=== PATIENT | female | born 1960 | race Caucasian/White ===

== ENCOUNTER 2016-04-15 21:38 | Inpatient (IN) | payer OTHER ==
--- NOTE | ~2016-04-15 | HP ---
Unit #: [id number] #: [id number] Patient: GUY ARAIZA [id number] [address] [place], [place] [address] [id number] MR#: [id number] NAME: GUY ARAIZA. ROOM: 215 Age: 55 Sex: F Admission Date: 04/16/2016 : 1960 Attending Physician: Jazz Thomson M.D. Primary Care Physician: Alondra Smith M.D. HISTORY AND PHYSICAL CHIEF COMPLAINT Community-acquired pneumonia with acute hypoxic respiratory failure and asthma exacerbation. HISTORY This pleasant 55-year-old female with asthma, hypertension, ulcerative colitis, is admitted for pneumonia. The patient states that she was well until two days ago when she developed fevers, chills, increasing shortness of breath with a deep cough productive of yellow sputum and mild wheezing. She was seen at an [facility] earlier today and was given some steroids, sent to this facility. In our ER, chest x-ray shows new diffuse bilateral interstitial infiltrates consistent with pneumonia. She was treated with Tylenol for a fever, given 2 g of Rocephin, 500 mg of Zithromax and a liter of saline. Denies antibiotics or hospitalizations over the past three months. PAST MEDICAL HISTORY 1. Asthma, status post bronchial thermoplasty, on chronic low dose steroids. 2. Ulcerative colitis. 3. Hypertension. 4. Hypothyroidism. 5. GERD. 6. DJD. 7. Allergic rhinitis. 8. Cholecystectomy. 9. BTL. 10. Left total hip replacement. 11. Right total knee replacement. ALLERGIES Sulfa, penicillin, Cipro, cyclosporin, possibly Biaxin. The patient is not allergic to cephalosporins. HOME MEDICATIONS 1. Astelin nasal spray. 2. Calcium plus D b.i.d. 3. Mucous Relief four tablets daily as needed. 4. Vitamin B12, 1000 mcg daily. 5. Procardia XL 30 mg daily. 6. Iron 65 mg daily. 7. Aspirin 81 mg daily. Unit #: [id number] #: [id number] Patient: GUY ARAIZA 8. Synthroid 150 mcg daily. 9. Omeprazole 40 mg daily. 10. Methylprednisolone 2 mg every other day. 11. Flonase nasal spray. 12. Advair b.i.d. 13. QVAR b.i.d. 14. Spiriva one puff daily. 15. Some sort of shot every three months. 16. Mesalamine 1.2 g b.i.d. 17. Paxil 10 mg daily. FAMILY HISTORY Asthma. SOCIAL HISTORY The patient lives with her boyfriend. She is a lifelong nonsmoker, seldom drinks alcohol. REVIEW OF SYSTEMS Notable for productive cough, shortness of breath, fevers, chills, asthma, hypertension, hypothyroidism, ulcerative colitis, GERD, DJD, allergic rhinitis, psoriasis, above mentioned surgeries. All other systems were reviewed and are negative. PHYSICAL EXAMINATION GENERAL APPEARANCE: Pleasant, obese, 55-year-old female who looks younger than stated age. VITAL SIGNS: Temperature 100.8, pulse 116, respirations 22, blood pressure 115/78. O2 saturation was 86% on room air. HEENT: Eyes PERRLA. Extraocular muscles are intact. Pharynx is benign. NECK: Supple without adenopathy or thyromegaly. CHEST: Some rhonchi and some crackles bilaterally anteriorly. Rhonchi posteriorly with mild expiratory wheeze bilaterally. CARDIAC: Normal S1 and S2 without murmur. ABDOMEN: Bowel sounds are present. No hepatosplenomegaly, tenderness or masses. EXTREMITIES: Without clubbing, cyanosis or edema. Pedal pulses are present. NEUROLOGIC EXAM: The patient is awake, alert, oriented. Cranial nerves are intact. Equal strength throughout. DIAGNOSTIC STUDIES LABORATORY: Admission labs - hematocrit is 41.8, white blood count is 10.1, normal platelet count. SMA-12 - glucose 132, sodium 134, lactic acid is normal. Cardiac markers are negative. Flu serology negative. IMAGING: Chest x-ray - new, diffuse, bilateral interstitial infiltrates consistent with pneumonia. ASSESSMENT 1. Community-acquired pneumonia with acute hypoxic respiratory failure and asthma exacerbation. 2. Hypertension. Unit #: [id number] #: [id number] Patient: GUY ARAIZA 3. Hypothyroidism. 4. Gastroesophageal reflux disease. 5. Ulcerative colitis. 6. Psoriasis. 7. Degenerative joint disease. PLANS 1. Zithromax and Rocephin will be continued pending cultures. 2. Steroids, mucolytics, bronchodilators. 3. DVT prophylaxis. 4. Florastor. 5. IV fluids and supportive treatment. 6. If not improving, will ask pulmonary to see. Patient requests Dr. Zeke Ordoñez to see if a certified professional coder is necessary. Dictated by Jazz Thomson M.D. TALA/lacey TD: 04/16/2016 06:20 JOB #: [id number] HISTORY AND PHYSICAL X Jazz Thomson MD X HISTORY AND PHYSICAL
--- NOTE | ~2016-04-15 | CR72 ---
[facility] A Service of [facility] RADIOLOGY TEXT RESULTS PATIENT: GUY ARAIZA LOCATION: [facility] : [birth year] UNIT #: [id number] AGE: [address]: Krish Macias MD SEX: F ORDER DR: [id number] [facility] [address] [facility]. [place], [place] [address] [id number] MR#: [id number] Acc #: [id number] NAME: GUY ARAIZA : 1960 SEX: F STUDY DATE/TIME: 04/15/2016 19:45 UNIT: [facility] ROOM: [facility] STUDY DESCRIPTION: CR Chest Single View Portable Attending Physician: Krish Macias M.D. Ordering Physician: Eros Pascal D.O. Primary Care Physician: Alondra Smith M.D. MEDICAL IMAGING REPORT This report is preliminary unless electronic signature is present EXAM AP portable chest. DATE 04/15/2016 HISTORY Shortness of breath for 3 days. Cough and congestion and fever. COMPARISON PA and lateral chest 03/23/2013. FINDINGS New diffuse interstitial changes are seen within both lungs thought to represent change of bilateral interstitial pneumonia. Heart size is normal. No pleural effusion or pneumothorax. Radiographic followup to resolution is recommended. Dictated by... Leeanne Sapp M.D. THIS IS AN ELECTRONICALLY VERIFIED REPORT Leeanne Sapp M.D. at 04/16/2016 2:09 PM [facility]/anirudh TD: 04/16/2016 09:14 JOB #: [id number] MEDICAL IMAGING REPORT COPY
--- NOTE | ~2016-04-15 | DS ---
Unit #: [id number] #: [id number] Patient: GUY ARAIZA [id number] [address] [address] [id number] I MR#: [id number] NAME: GUY ARAIZA. ROOM: 215 Age: 55 Sex: F Admission Date: 04/15/2016 : 1960 Discharge Date: 04/18/2016 Attending Physician: Krish Macias M.D. Primary Care Physician: Alondra Smith M.D. DISCHARGE SUMMARY DISCHARGE DIAGNOSES 1. Community acquired pneumonia. Presented to be gram negative rods. 2. Sepsis present on admission due to pneumonia. 3. Acute asthma exacerbation. 4. Essential hypertension. 5. Ulcerative colitis. Chronically on methylprednisolone. 6. Hypothyroidism. 7. History of gastroesophageal reflux disease. PROCEDURES PERFORMED None. CONSULTANTS None. DIAGNOSTIC DATA IMAGING: Chest x-ray on 04/15/2016, findings new diffuse interstitial changes seen within both lungs, thought to represent change of bilateral interstitial pneumonia. Heart size is normal. No pleural effusion or pneumothorax. Radiographic followup to resolution is recommended. LABORATORY: On the day of discharge the patient's lab include glucose 153, BUN 19, creatinine 1.0, sodium 135, potassium 4.4, chloride 102, CO2 27, calcium 9.0, total protein 7.6, albumin 3.6, total bilirubin 0.7. A1c was 5.6. TSH was 0.66. CBC with white blood cell count 5.7, RBC 4.5, hemoglobin 13.3, hematocrit 39.5, MCV 87.8, MCH 29.5, MCHC 33.6, RDW 14.4, platelets 227, MCV 7.7. HOSPITAL COURSE The patient is a pleasant 55-year-old female with a past medical history of asthma, essential hypertension, ulcerative colitis. She presented to the emergency department with two days of symptoms of fever, chills, increasing shortness of breath with a deep cough productive of yellow sputum and mild wheezing. She was seen by [facility] earlier on the day of admission and was given some steroids and sent to [facility] emergency department. In the emergency department chest x-ray had shown new diffuse bilateral interstitial infiltrates consistent with pneumonia. She was treated with Tylenol for fever, given 2 g of Rocephin, 500 mg Zithromax and a liter of saline. She had denied antibiotics or hospitalization over the past three months. She was treated for her asthma exacerbation with high-dose Solu-Medrol. The following day she felt that she had much improvement in her symptoms and she had desaturated with ambulation. Therefore, we continued her course of treatment. Today she again still feels pretty well, but is able to Unit #: [id number] #: [id number] Patient: GUY ARAIZA keep her oxygen saturation at about 92% on room air. With ambulating in the hallway she will desaturate to the 80s. She tells me that she has chronic dyspnea on exertion. I truly believe that she has chronic hypoxic respiratory failure and is hypoxic on exertion. I have spoken to her at length about how at less than 88% the body is starving for oxygen and that this would put a great strain on her heart. I did tell her that I am hopeful that maybe after an acute asthma exacerbation she could be reassessed by either her family doctor or her timekeeping supervisor to see if she needs continued oxygen. There is a stigma that she has with oxygen usage and she is hopeful that she will not need oxygen. Again I have stressed to her the importance of oxygen usage if needed and that it strains the heart to be in hypoxic state. She voiced understanding. At this time she is stable and is discharged in stable condition, to set up home oxygen usage. DISCHARGE CONDITION Stable. FOLLOWUP 1. Arranging for home oxygen usage. 2. Follow up with primary care physician within one to two weeks with follow-up chest x-ray. 3. Follow up with her timekeeping supervisor or her thread puller in about three to four weeks. DISCHARGE MEDICATIONS 1. Albuterol nebulizer daily. 2. Advair 230 with 21 mcg inhaled 2 puffs b.i.d. 3. Methylprednisolone 2 mg p.o. every other day. 4. Fluticasone nasal spray 2 sprays each nares daily. 5. Q-Lauren 2 puffs inhaled b.i.d. 6. Spiriva inhaled 1 capsule daily. 7. Procardia XL 30 mg p.o. daily. 8. Guaifenesin 400 mg p.o. q.i.d. p.r.n. coughing. 9. Astelin 2 sprays each nares daily. 10. Diovan 160 mg p.o. daily. 11. Iron supplement, iron sulfate, 325 mg p.o. daily. 12. Will give her one more dose of azithromycin 250 mg p.o. daily to complete a 5-day course. 13. Mesalamine 1.2 g p.o. b.i.d. 14. Aspirin 81 mg p.o. daily. 15. Prilosec 40 mg p.o. daily. 16. Calcium plus D 600 mg p.o. daily. 17. Albuterol nebulized t.i.d. 18. Synthroid 150 mcg p.o. daily. 19. Vitamin B12 1000 mg p.o. daily. 20. I will be prescribing prednisone for 40 mg p.o. for 3 days, 30 mg p.o. for 3 days, 20 mg p.o. for 3 days, 10 mg p.o. for 3 days, then stop. Dictated by... Jim Mcnair PA-C for Akila Eaton TD: 04/18/2016 09:10 Unit #: [id number] #: [id number] Patient: GUY ARAIZA JOB #: [id number] DISCHARGE SUMMARY X X DISCHARGE SUMMARY
--- NOTE | ~2016-04-15 | EKG ---
PATIENT: GUY ARAIZA UNIT #: [id number] Ventricular Rate: 113 BPM Atrial Rate: 113 BPM P-R Interval: 152 ms QRS Duration: 92 ms Q-T Interval: 320 ms QTC Calculation(Bezet): 438 ms P [place]: 71 degrees Calculated R [place]: 100 degrees Calculated T [place]: 51 degrees Diagnosis Line: Sinus tachycardia Diagnosis Line: Rightward axis Diagnosis Line: Incomplete right bundle branch block Diagnosis Line: Septal infarct (cited on or before 23-MAR-2013) Diagnosis Line: Abnormal ECG Diagnosis Line: When compared with ECG of 23-MAR-2013 06:41, Diagnosis Line: (unconfirmed) Diagnosis Line: Vent. rate has increased BY 39 BPM Diagnosis Line: Incomplete right bundle branch block is now Diagnosis Line: Present Diagnosis Line: Confirmed by BAILEY MALDONADO MD[facility] ([id number]) on Diagnosis Line: 04/16/2016 4:12:56 PM INTERPRETING MD: ERICA ASHFORD
[2016-04-15 20:19] LABS: BASOPHIL# 0.1 X10e3 (0-0.3); BASOPHIL% 0.5 % (0-2.5); DIFF IND NO; EOSINOPHIL# 0.2 X10e3 (0-0.7); EOSINOPHIL% 2.3 % (0.0-7.0); HEMATOCRIT 41.8 % (35.0-45.0); HEMOGLOBIN 14.2 gm/dL (12.0-16.0); LYMPHOCYTE# 0.6 X10e3 (1.0-3.5); LYMPHOCYTE% 6.1 % (17.0-45.0); MEAN CELL VOLUME 86.7 FL (83-96); MEAN CORPUSCULAR HEMOGLOBIN 29.4 PG (28-34); MEAN CORPUSCULAR HGB CONC 33.9 g/dL (30-36); MEAN PLATELET VOLUME 7.5 FL (6.5-11.5); MONOCYTE# 0.7 X10e3 (0-1.0); MONOCYTE% 6.8 % (3.0-12.0); NEUTROPHIL# 8.5 X10e3 (1.5-7.1); NEUTROPHIL% 84.3 % (40-75); PLATELET COUNT 215 X10e3 (140-420); RED BLOOD COUNT 4.82 X10e (3.90-5.30); RED CELL DISTRIBUTION WIDTH 14.2 % (11.0-15.5); WHITE BLOOD COUNT 10.1 X10e3 (4.0-10.5)
[2016-04-15 20:24] LABS: POC - CKMB 3.2 ng/mL (0.0-7.9); POC - TROPONIN <0.05 ng/mL (<=0.05)
[2016-04-15 20:50] LABS: ALBUMIN SERUM 3.6 g/dL (3.5-5.0); BILIRUBIN, DIRECT 0.2 mg/dL (0.0-0.2); BILIRUBIN,INDIRECT 0.5 mg/dL (0.0-0.9); BILIRUBIN,TOTAL 0.7 mg/dL (0.2-2.0); BUN/CREATININE RATIO 6.66; CALCIUM SERUM 8.8 mg/dL (8.4-10.2); CREATININE SERUM 1.2 mg/dL (0.6-1.4); GLOM FILT RATE Estimated 49.9 mL/min (>60); POTASSIUM 3.9 mmol/L (3.5-5.1); PROTEIN TOTAL SERUM 7.6 g/dL (6.0-8.3)
[~2016-04-15 21:38] MED LIST: ADVAIR 5001 DISK W/D; ALBUTEROL17 GM; CALCIUM 600 +1 EA10 PO; DIOVAN160 MG PO; DULERA 200 MCG/13 GM IH; FLONASE 0.05% N16 GM; IRON325 ( 651 PO; LOW DOSE ASPIRI81 M1 PO; MEDROL2 MG PO; MUCOSA400 MG PO; PERCOCET 7.5/321 TAB PO; PRILOSEC40 MG PO; PROCARDIA XL PO; QVAR7.3 G1 IH; SYNTHROID; SYNTHROID0.15 MG PO; TRAMADOL HCL50 M1 PO; VITAMIN B-121000 MCG PO; XOPENEX1.25 MG/3 IH; ZEGERID40 MG/PKT; ZESTORETIC 20/11 TAB
[2016-04-15] MEDS ORDERED: AZELASTINE137 MCG/01 (22:05)
[2016-04-15] MEDS ORDERED: SPIRIVA18 MCG INH (22:06)
[2016-04-15] MEDS ORDERED: ADVAIR HFA 230-28 GM INH (22:06)
[2016-04-15] MEDS ORDERED: LIALDA1.2 G PO (22:07)
[2016-04-15 22:17] LABS: INFLUENZA A NEG (NEG); INFLUENZA B NEG (NEG)
[2016-04-16 07:45] LABS: BASOPHIL% 0.1 % (0-2.5); HEMATOCRIT 43.7 % (35.0-45.0); HEMOGLOBIN 14.9 gm/dL (12.0-16.0); LYMPHOCYTE# 0.9 X10e3 (1.0-3.5); LYMPHOCYTE% 12.2 % (17.0-45.0); MEAN CORPUSCULAR HEMOGLOBIN 29.9 PG (28-34); MEAN PLATELET VOLUME 7.6 FL (6.5-11.5); MONOCYTE# 0.1 X10e3 (0-1.0); MONOCYTE% 1.8 % (3.0-12.0); NEUTROPHIL# 6.2 X10e3 (1.5-7.1); NEUTROPHIL% 85.9 % (40-75); PLATELET COUNT 199 X10e3 (140-420); RED BLOOD COUNT 4.97 X10e (3.90-5.30); RED CELL DISTRIBUTION WIDTH 14.4 % (11.0-15.5); WHITE BLOOD COUNT 7.2 X10e3 (4.0-10.5)
[2016-04-16 07:51] LABS: DIFF IND NO
[2016-04-16 08:23] LABS: CALCIUM SERUM 8.5 mg/dL (8.4-10.2); CREATININE SERUM 1.2 mg/dL (0.6-1.4); GLOM FILT RATE Estimated 49.9 mL/min (>60); POTASSIUM 4.2 mmol/L (3.5-5.1)
[2016-04-16 09:57] LABS: URINE APPEARANCE CLEAR; URINE BILIRUBIN NEG (NEG); URINE BLOOD NEG (NEG); URINE COLOR YELLOW; URINE GLUCOSE 250 MG/DL (NEG); URINE KETONE NEG (NEG); URINE LEUKOCYTE ESTERASE NEG (NEG); URINE NITRATE NEG (NEG); URINE PROTEIN NEG (NEG); URINE UROBILINOGEN 0.2 MG/DL (NEG)
[2016-04-16 10:43] LABS: LEGIONELLA AG URINE NEG (NEG)
[2016-04-17 05:31] LABS: HEMATOCRIT 39.1 % (35.0-45.0); HEMOGLOBIN 13.3 gm/dL (12.0-16.0); MEAN CELL VOLUME 87.8 FL (83-96); MEAN CORPUSCULAR HEMOGLOBIN 29.9 PG (28-34); MEAN CORPUSCULAR HGB CONC 34.1 g/dL (30-36); MEAN PLATELET VOLUME 7.8 FL (6.5-11.5); RED BLOOD COUNT 4.45 X10e (3.90-5.30); RED CELL DISTRIBUTION WIDTH 14.6 % (11.0-15.5)
[2016-04-17 06:32] LABS: BLOOD UREA NITROGEN 18 mg/dL (9-23); CALCIUM SERUM 8.9 mg/dL (8.4-10.2); CARBON DIOXIDE 26 mmol/L (22-31); CHLORIDE 110 mmol/L (100-111); GLOM FILT RATE Estimated ABOVE60 mL/min (>60); GLUCOSE FASTING 143 mg/dL (70-110); POTASSIUM 4.6 mmol/L (3.5-5.1); SODIUM 143 mmol/L (135-145)
[2016-04-18 06:25] LABS: HEMATOCRIT 39.5 % (35.0-45.0); HEMOGLOBIN 13.3 gm/dL (12.0-16.0); MEAN CELL VOLUME 87.8 FL (83-96); MEAN CORPUSCULAR HEMOGLOBIN 29.5 PG (28-34); MEAN CORPUSCULAR HGB CONC 33.6 g/dL (30-36); MEAN PLATELET VOLUME 7.7 FL (6.5-11.5); RED BLOOD COUNT 4.5 X10e (3.90-5.30); RED CELL DISTRIBUTION WIDTH 14.4 % (11.0-15.5); WHITE BLOOD COUNT 5.7 X10e3 (4.0-10.5)
[2016-04-18 07:00] LABS: BLOOD UREA NITROGEN 19 mg/dL (9-23); CARBON DIOXIDE 27 mmol/L (22-31); CHLORIDE 104 mmol/L (100-111); GLOM FILT RATE Estimated ABOVE60 mL/min (>60); GLUCOSE FASTING 153 mg/dL (70-110); POTASSIUM 4.4 mmol/L (3.5-5.1); SODIUM 139 mmol/L (135-145)
[2016-04-18] MEDS ORDERED: PREDNISONE PO (11:50)
[2016-04-18] MEDS ORDERED: AZITHROMYCIN250 MG PO (11:51)
== END 2016-04-18 12:54 | disposition home or self-care (01) | DRG 871 ==
LOC: CED 21:38 → CEDOF 23:50 → C2A 04-16 02:15
PROVIDERS: Emergency Medicine; Internal Medicine; Physician Assistant Medical
DX: A41.50 Gram-negative sepsis, unspecified (principal); J15.6 Pneumonia due to other Gram-negative bacteria; J96.21 Acute and chronic respiratory failure with hypoxia; J45.901 Unspecified asthma with (acute) exacerbation; K51.90 Ulcerative colitis, unspecified, without complications; R65.20 Severe sepsis without septic shock; E03.9 Hypothyroidism, unspecified; K21.9 Gastro-esophageal reflux disease without esophagitis; I10 Essential (primary) hypertension; M19.90 Unspecified osteoarthritis, unspecified site; L40.9 Psoriasis, unspecified; Z90.49 Acquired absence of other specified parts of digestive tract; Z96.643 Presence of artificial hip joint, bilateral; Z88.0 Allergy status to penicillin; Z88.2 Allergy status to sulfonamides
CPT/HCPCS: 36415; 71010; 80048; 80076; 81003; 82553; 83036; 83605; 84443; 84484; 85025; 85027; 85379; 87040; 87070; 87086; 87205; 87449; 87633; 87804; 87899; 93005; 94640; 94664; 94760; 99285; J0456; J0696; J1650; J2920